=== PATIENT | male | born 1950 | race Caucasian/White ===

== ENCOUNTER 2018-01-26 11:54 | Inpatient (IN) | payer OTHER ==
[~2018-01-26] VITALS: Ht 162.6 cm; Wt 81.9 kg
[~2018-01-26 11:54] MED LIST: CARAFATE100 MG/ML PO; PROTONIX40 MG PO
[2018-01-26 12:33] LABS: BASOPHIL (%) 0.7 % (0-1); BASOPHIL COUNT 0.1 K/uL (0-0.1); EOSINOPHIL (%) 0.2 % (0-5); HEMATOCRIT 38.6 % (38.0-50.0); HEMOGLOBIN 12.8 G/DL (12.5-16.6); IMMATURE GRANULOCYTE (%) 0.6 % (0.0-0.7); LYMPHOCYTE (%) 24.3 % (15-42); MCHC 33.2 G/DL (30.0-36.0); MCV 93.5 FL (86-99); MONOCYTE COUNT 1.2 K/uL (0-0.8); NEUTROPHIL (%) 59.2 % (45-76); NEUTROPHIL COUNT 4.9 K/uL (1.8-6.4); NRBC (%) 0.2 /100 WBC (0-0); PLATELET COUNT 179 K/uL (156-360); RBC DIS.WIDTH-CV 13.5 % (11.8-14.6); RBC DIS.WIDTH-SD 46.6 % (39-53); RED BLOOD COUNT 4.13 M/uL (4.00-5.50); WHITE BLOOD COUNT 8.3 K/uL (4.1-10.2)
[2018-01-26 12:44] LABS: CHLORIDE 100 mEq/L (99-109); POTASSIUM 4.7 mEq/L (3.7-5.4); SODIUM 136 mEq/L (136-147)
[2018-01-26 12:45] LABS: GLUCOSE 102 mg/dL (70-99)
[2018-01-26 12:49] LABS: CREATININE 0.7 mg/dL (0.6-1.3); GFR ESTIMATE (CALCULATED) > 59 mL/min/ (58.99-99999)
[2018-01-26 12:50] LABS: UREA NITROGEN (BUN) 16 mg/dL (9-23)
[2018-01-26] MEDS ORDERED: CLOPIDOGREL75 MG PO (13:47)
[2018-01-26] MEDS ORDERED: AMARYL1 MG PO (13:47)
[2018-01-26] MEDS ORDERED: ALPRAZOLAM0.25 M2 PO (13:47)
[2018-01-26] MEDS ORDERED: ATENOLOL25 MG PO (13:48)
[2018-01-26] MEDS ORDERED: AMLODIPINE BESY10 MG PO (13:48)
[2018-01-26] MEDS ORDERED: PRAVASTATIN SOD20 MG PO (13:48)
[2018-01-26 15:30] VITALS: BP 134/76
[2018-01-26 20:14] VITALS: BP 170/77
[2018-01-27 00:07] VITALS: BP 174/77
[2018-01-27 04:16] VITALS: BP 134/63
[2018-01-27 05:57] LABS: HEMATOCRIT 38.8 % (38.0-50.0); HEMOGLOBIN 12.7 G/DL (12.5-16.6); MCH 30.8 PG (29.0-34.0); MCHC 32.7 G/DL (30.0-36.0); MCV 94.2 FL (86-99); RBC DIS.WIDTH-CV 13.5 % (11.8-14.6); RBC DIS.WIDTH-SD 45.8 % (39-53); RED BLOOD COUNT 4.12 M/uL (4.00-5.50); WHITE BLOOD COUNT 8.1 K/uL (4.1-10.2)
[2018-01-27 05:59] LABS: PLATELET COUNT 234 K/uL (156-360)
[2018-01-27 06:26] LABS: ALBUMIN 3.8 G/DL (3.2-4.8); ALKALINE PHOSPHATASE 63 IU/L (3-129); ALT (GPT) 18 IU/L (3-49); AST (GOT) 24 IU/L (2-34); CHLORIDE 100 MEQ/L (99-109); CREATININE 0.8 MG/DL (0.6-1.3); GFR ESTIMATE (CALCULATED) > 59 mL/min/ (58.99-99999); POTASSIUM 3.9 MEQ/L (3.7-5.4); SODIUM 138 MEQ/L (136-147); TOTAL BILIRUBIN 0.3 MG/DL (0.0-1.0); TOTAL PROTEIN 7.8 G/DL (6.4-8.3); UREA NITROGEN (BUN) 24 mg/dL (9-23)
[2018-01-27 06:29] LABS: GLUCOSE 167 mg/dL (70-99)
[2018-01-27 07:49] VITALS: BP 142/61
[2018-01-27 15:29] VITALS: BP 144/77
[2018-01-27 18:50] VITALS: BP 146/67
[2018-01-27 23:10] VITALS: BP 146/67
[2018-01-28 04:00] VITALS: BP 152/70
[2018-01-28 08:26] VITALS: BP 170/72
[2018-01-28 15:27] VITALS: BP 150/65
[2018-01-28 23:10] VITALS: BP 149/69
[2018-01-29 08:16] VITALS: BP 174/75
[2018-01-29 15:58] VITALS: BP 130/80
[2018-01-30 00:14] VITALS: BP 153/66
[2018-01-30 07:35] VITALS: BP 141/65
[2018-01-30] MEDS ORDERED: PREDNISONE20 MG PO (14:30)
[2018-01-30] MEDS ORDERED: CEFTIN250 MG PO (14:30)
== END 2018-01-30 15:30 | disposition home or self-care (01) | DRG 190 ==
LOC: EME 11:54 → EDOF 13:15 → 2EAST 13:15 → CANRESERV 13:39 → ENRESERV 13:39 → 2EAST 14:55
PROVIDERS: Emergency Medicine; Internal Medicine
DX: J44.1 Chronic obstructive pulmonary disease with (acute) exacerbation (principal); J96.01 Acute respiratory failure with hypoxia; J44.0 Chronic obstructive pulmonary disease with (acute) lower respiratory infection; J20.9 Acute bronchitis, unspecified; E11.51 Type 2 diabetes mellitus with diabetic peripheral angiopathy without gangrene; G47.33 Obstructive sleep apnea (adult) (pediatric); I10 Essential (primary) hypertension; E78.5 Hyperlipidemia, unspecified; F41.9 Anxiety disorder, unspecified; F17.210 Nicotine dependence, cigarettes, uncomplicated; E66.9 Obesity, unspecified; Z79.84 Long term (current) use of oral hypoglycemic drugs; Z68.30 Body mass index [BMI] 30.0-30.9, adult; Z79.02 Long term (current) use of antithrombotics/antiplatelets
CPT/HCPCS: 71045; 80048; 80053; 82948; 85025; 85027; 93005; 94010; 94640; 94640 76; 94799; 99281; 99284; J0696; J1815; J1940; J2930; J7512